=== PATIENT | male | born 1950 | race Caucasian/White ===

== ENCOUNTER 2016-10-31 10:28 | Outpatient (RCR) | payer OTHER | END 2016-11-25 | disposition home or self-care (01) | LOC: PTY 10:28 | DX: M25.511 Pain in right shoulder (principal) ==

== ENCOUNTER 2016-11-28 11:30 | Outpatient (RCR) | payer OTHER | END 2016-12-23 | disposition home or self-care (01) | LOC: PTY 11:30 | DX: M25.511 Pain in right shoulder (principal) ==

== ENCOUNTER 2017-01-01 10:30 | Outpatient (RCR) | payer OTHER | END 2017-01-23 | disposition home or self-care (01) | LOC: PTY 10:30 | DX: M25.511 Pain in right shoulder (principal) | CPT/HCPCS: 97110; 97140; G0283 ==

== ENCOUNTER 2017-01-26 11:30 | Outpatient (RCR) | payer OTHER | END 2017-02-22 | disposition home or self-care (01) | LOC: PTY 11:30 | DX: M25.511 Pain in right shoulder (principal) | CPT/HCPCS: 97110; G0283 ==